=== PATIENT | male | born 1960 | race African-American/Black ===

== ENCOUNTER 2021-01-28 21:50 | Inpatient (IN) | payer OTHER ==
[~2021-01-28] VITALS: Ht 170.2 cm; Wt 90.7 kg
[~2021-01-28 21:50] MED LIST: ASPI-1406 PO; CALC0.5C10 PO; CALC500T35 PO; KEPP500 MT; LEVO125T8 PO; PANT20TA17 MT; PRED10TA PO
[2021-01-28] MEDS ORDERED: LEVETIRACETAM 500MG PREMIX 100 ML IV ONE (22:45)
[2021-01-28] MEDS ORDERED: SODIUM CHLORIDE 0.9% 1,000 ML IV ONE (22:45)
[2021-01-28 23:34] LABS: CHLORIDE 99 mEq/L (98-107)
[2021-01-28 23:48] LABS: HEMATOCRIT. 46.4 % (42.0-52.0); HEMOGLOBIN. 15.2 g/dL (14.0-18.0); MEAN CORPUSCULAR VOLUME 82.4 fL (80.0-94.0); RED BLOOD CELL COUNT 5.63 mill/uL (4.7-6.1); RED CELL DISTRIBUTION WIDTH 16.7 % (11.6-14.6)
[2021-01-29 04:31] LABS: MEAN PLATELET VOLUME 8.1 fl (7.4-10.4); PLATELET 273 x1000/uL (130-400)
[2021-01-29 04:39] LABS: PLATELET ESTIMATE NORMAL
[2021-01-29] MEDS ORDERED: DEXTROSE 50% WATER 50ML SYRINGE IV ONE (08:00)
[2021-01-29] MEDS ORDERED: PIPERACILLIN/TAZ 3.375G PREMIX 50 ML IV ONE (08:15)
[2021-01-29] MEDS ORDERED: VANCOMYCIN 1 G PREMIX 200 ML IV ONE (08:15)
[2021-01-29 10:00] VITALS: BP 126/67
[2021-01-29] MEDS ORDERED: ZOLPIDEM TARTRATE 5MG TABLET PO PRN (10:15)
[2021-01-29] MEDS ORDERED: KETOROLAC 30MG/ML VIAL IV PRN (10:15)
[2021-01-29] MEDS ORDERED: IPRATROPIUM/ALBUTEROL 0.5-3(2.5)MG/3ML NEB NEB PRN (10:15)
[2021-01-29] MEDS ORDERED: GUAIFENESIN 200MG/10ML SUGAR FREE UDC PO PRN (10:15)
[2021-01-29] MEDS ORDERED: ENOXAPARIN 30MG/0.3ML SYR SUBCUT SCH (10:15)
[2021-01-29] MEDS ORDERED: ACETAMINOPHEN 325MG TABLET PO PRN ×2 (10:15)
[2021-01-29] MEDS ORDERED: DOCUSATE SODIUM 100MG CAPSULE PO PRN (10:15)
[2021-01-29] MEDS ORDERED: MAGNESIUM/ALUMINUM HYDROXIDE/SIMETHICONE 30ML UDC PO PRN (10:15)
[2021-01-29 12:00] VITALS: BP 116/50
[2021-01-29] MEDS ORDERED: LEVOFLOXACIN 500MG PREMIX 100 ML IV SCH ×2 (12:00→15:00)
[2021-01-29] MEDS ORDERED: DEXTROSE 50% WATER 50ML SYRINGE IV PRN (12:15)
[2021-01-29] MEDS: INSULIN LISPRO 100 UNITS/ML SUBCUT SCH ×3 (12:50→21:00)
[2021-01-29] MEDS: BLOOD SUGAR DIAGNOSTIC STRIP TEST SCH ×3 (12:56→21:00)
[2021-01-29] MEDS: LEVOFLOXACIN 250MG PREMIX 50 ML IV SCH (13:43)
[2021-01-29] MEDS: SODIUM CHLORIDE 0.9% 1,000 ML IV SCH ×2 (13:44→22:11)
[2021-01-29] MEDS: DEXT 5%/LACTATED RINGERS 1,000 ML IV SCH (13:45)
[2021-01-29] MEDS: ENOXAPARIN 80MG/0.8ML SYR SUBCUT SCH (14:17)
[2021-01-29 15:20] VITALS: BP 126/67
[2021-01-29] MEDS: FAMOTIDINE 20MG TABLET PO SCH (15:59)
[2021-01-29] MEDS: ASPIRIN 325MG EC TABLET PO SCH (15:59)
[2021-01-29 16:00] VITALS: BP 95/61
[2021-01-29] MEDS: LEVETIRACETAM 500MG/5ML CUP PO SCH (16:05)
[2021-01-29 20:32] VITALS: BP 102/79
[2021-01-29] MEDS: ASCORBIC ACID 500 MG TABLET PO SCH (22:11)
[2021-01-30] VITALS: BP 105/80
[2021-01-30 00:01] LABS: TOTAL IRON BINDING CAPACITY 143 ug/dL (250-450)
[2021-01-30 00:04] LABS: CREATINE KINASE 246 IU/L (39-308); T4 FREE 0.41 ng/dL (0.76-1.46)
[2021-01-30 00:05] LABS: CREATINE KINASE MB FRACTION < 1.0 ng/mL (0.5-3.6)
[2021-01-30] MEDS: DEXT 5%/LACTATED RINGERS 1,000 ML IV SCH ×2 (03:05→16:00)
[2021-01-30 04:20] VITALS: BP 106/48
[2021-01-30 05:23] LABS: FOLIC ACID (FOLATE) SERUM 4.7 ng/mL (>5.38)
[2021-01-30 06:44] LABS: CHLORIDE 102 mEq/L (98-107)
[2021-01-30 06:52] LABS: PHOSPHORUS 2.8 mg/dL (2.5-4.9)
[2021-01-30] MEDS: BLOOD SUGAR DIAGNOSTIC STRIP TEST SCH ×4 (06:53→21:27)
[2021-01-30] MEDS: INSULIN LISPRO 100 UNITS/ML SUBCUT SCH ×4 (06:53→21:00)
[2021-01-30 08:00] VITALS: BP 110/73
[2021-01-30] MEDS: ASPIRIN 325MG EC TABLET PO SCH (09:59)
[2021-01-30] MEDS: LEVETIRACETAM 500MG/5ML CUP PO SCH ×2 (09:59→21:27)
[2021-01-30] MEDS: ASCORBIC ACID 500 MG TABLET PO SCH ×2 (09:59→21:27)
[2021-01-30] MEDS: FAMOTIDINE 20MG TABLET PO SCH ×2 (09:59→10:00)
[2021-01-30] MEDS: LEVOFLOXACIN 250MG PREMIX 50 ML IV SCH (09:59)
[2021-01-30] MEDS: ZINC SULFATE 220 MG ( 50 ) CAPSULE PO SCH ×2 (09:59→10:00)
[2021-01-30 10:24] LABS: BASOPHILS % 1.1 % (0.0-2.0); EOSINOPHILS % 9.2 % (0.0-5.0); HEMATOCRIT. 39.9 % (42.0-52.0); HEMOGLOBIN. 12.7 g/dL (14.0-18.0); LYMPHOCYTES % 23.3 % (20.0-50.0); MEAN CORPUSCULAR HEMOGLOBIN 26.7 pg (28.0-32.0); MEAN CORPUSCULAR VOLUME 83.8 fL (80.0-94.0); MONOCYTES % 13.1 % (2.0-8.0); NEUTROPHILS % 53.3 % (40.0-76.0); PLATELET 257 x1000/uL (130-400); RED BLOOD CELL COUNT 4.76 mill/uL (4.7-6.1); RED CELL DISTRIBUTION WIDTH 16.8 % (11.6-14.6)
[2021-01-30 12:00] VITALS: BP 114/61
[2021-01-30] MEDS ORDERED: LIDOCAINE HCL 1% 30ML VIAL (10MG/ML) ONE (14:01)
[2021-01-30] MEDS ORDERED: IOHEXOL-300 50 ML BOTTLE IV ONE (14:48)
[2021-01-30] MEDS: METOCLOPRAMIDE HCL 10MG TABLET PO SCH ×3 (15:59→21:27)
[2021-01-30] MEDS: ENOXAPARIN 80MG/0.8ML SYR SUBCUT SCH (15:59)
[2021-01-30 16:00] VITALS: BP 91/55
[2021-01-30] MEDS: MIDODRINE HCL 2.5MG TABLET PO SCH (18:39)
[2021-01-30 20:00] VITALS: BP 110/61
[2021-01-30 21:30] LABS: CLARITY URINE CLEAR (CLEAR); COLOR URINE DARK YELLOW (YELLOW); KETONES URINE TRACE (NEGATIVE); LEUKOCYTE ESTERASE URINE TRACE (NEGATIVE); NITRITE URINE NEGATIVE (NEGATIVE); OCCULT BLOOD URINE NEGATIVE (NEGATIVE); PH URINE 5.5 (4.5-8.0); PROTEIN URINE 1+ (NEGATIVE); SPECIFIC GRAVITY URINE 1.018 (1.005-1.030)
[2021-01-31 00:15] VITALS: BP 96/52
[2021-01-31 04:00] VITALS: BP 105/52
[2021-01-31] MEDS: DEXT 5%/LACTATED RINGERS 1,000 ML IV SCH ×2 (05:34→18:09)
[2021-01-31] MEDS: METOCLOPRAMIDE HCL 10MG TABLET PO SCH ×4 (06:24→21:26)
[2021-01-31] MEDS: BLOOD SUGAR DIAGNOSTIC STRIP TEST SCH ×4 (06:47→21:00)
[2021-01-31] MEDS: INSULIN LISPRO 100 UNITS/ML SUBCUT SCH ×4 (07:50→21:00)
[2021-01-31 07:51] VITALS: BP 120/66
[2021-01-31] MEDS: ZINC SULFATE 220 MG ( 50 ) CAPSULE PO SCH (09:28)
[2021-01-31] MEDS: LEVETIRACETAM 500MG/5ML CUP PO SCH ×2 (09:29→21:22)
[2021-01-31] MEDS: ASCORBIC ACID 500 MG TABLET PO SCH ×2 (09:29→21:23)
[2021-01-31] MEDS: FAMOTIDINE 20MG TABLET PO SCH (09:29)
[2021-01-31] MEDS: ASPIRIN 325MG EC TABLET PO SCH (09:29)
[2021-01-31] MEDS: ONDANSETRON HCL 4MG/2ML INJ IV PRN ×2 (10:11→13:19)
[2021-01-31] MEDS: MIDODRINE HCL 2.5MG TABLET PO SCH ×3 (10:12→18:09)
[2021-01-31 11:02] VITALS: BP 95/57
[2021-01-31] MEDS: ENOXAPARIN 80MG/0.8ML SYR SUBCUT SCH (13:19)
[2021-01-31 16:00] VITALS: BP 101/51
[2021-01-31 19:20] LABS: *AMPHETAMINES SCREEN URINE NEGATIVE (NEGATIVE); *BARBITURATES SCREEN URINE NEGATIVE (NEGATIVE); *BENZODIAZEPINES SCREEN URINE NEGATIVE (NEGATIVE); *COCAINE SCREEN URINE NEGATIVE (NEGATIVE); METHADONE URINE SCREEN NEGATIVE (NEGATIVE); OPIATES URINE SCREEN NEGATIVE (NEGATIVE)
[2021-01-31 19:21] LABS: CANNABINOID URINE SCREEN NEGATIVE (NEGATIVE); PHENCYCLIDINE URINE SCREEN NEGATIVE (NEGATIVE)
[2021-01-31 20:19] VITALS: BP 112/59
[2021-02-01 00:07] VITALS: BP 122/59
[2021-02-01 04:24] VITALS: BP 97/51
[2021-02-01] MEDS: BLOOD SUGAR DIAGNOSTIC STRIP TEST SCH ×4 (06:23→21:00)
[2021-02-01] MEDS: METOCLOPRAMIDE HCL 10MG TABLET PO SCH ×4 (06:33→21:30)
[2021-02-01] MEDS: DEXT 5%/LACTATED RINGERS 1,000 ML IV SCH (07:38)
[2021-02-01] MEDS: INSULIN LISPRO 100 UNITS/ML SUBCUT SCH ×4 (07:50→21:31)
[2021-02-01 08:08] VITALS: BP 106/64
[2021-02-01] MEDS: ASPIRIN 325MG EC TABLET PO SCH (11:06)
[2021-02-01] MEDS: ASCORBIC ACID 500 MG TABLET PO SCH ×2 (11:06→21:24)
[2021-02-01] MEDS: MIDODRINE HCL 2.5MG TABLET PO SCH ×3 (11:07→19:03)
[2021-02-01] MEDS: ONDANSETRON HCL 4MG/2ML INJ IV PRN (11:07)
[2021-02-01] MEDS: LEVETIRACETAM 500MG/5ML CUP PO SCH ×2 (11:07→23:40)
[2021-02-01] MEDS: ZINC SULFATE 220 MG ( 50 ) CAPSULE PO SCH (11:07)
[2021-02-01] MEDS: FAMOTIDINE 20MG TABLET PO SCH (11:07)
[2021-02-01] MEDS: LEVOFLOXACIN 250MG PREMIX 50 ML IV SCH (11:08)
[2021-02-01 12:12] VITALS: BP 112/59
[2021-02-01] MEDS: ENOXAPARIN 80MG/0.8ML SYR SUBCUT SCH (13:33)
[2021-02-01 16:44] VITALS: BP 101/59
[2021-02-01 20:30] VITALS: BP 123/70
[2021-02-02 00:01] VITALS: BP 108/57
[2021-02-02] MEDS: DEXT 5%/LACTATED RINGERS 1,000 ML IV SCH ×2 (00:05→13:05)
[2021-02-02 04:00] VITALS: BP 97/52
[2021-02-02] MEDS: BLOOD SUGAR DIAGNOSTIC STRIP TEST SCH ×4 (06:24→20:30)
[2021-02-02] MEDS: METOCLOPRAMIDE HCL 10MG TABLET PO SCH ×4 (06:25→20:29)
[2021-02-02] MEDS: INSULIN LISPRO 100 UNITS/ML SUBCUT SCH ×4 (07:50→21:13)
[2021-02-02 07:57] VITALS: BP 99/58
[2021-02-02] MEDS: ZINC SULFATE 220 MG ( 50 ) CAPSULE PO SCH (09:00)
[2021-02-02] MEDS: LEVETIRACETAM 500MG/5ML CUP PO SCH ×2 (09:00→20:29)
[2021-02-02] MEDS: ASCORBIC ACID 500 MG TABLET PO SCH ×2 (09:00→20:29)
[2021-02-02] MEDS: MIDODRINE HCL 2.5MG TABLET PO SCH ×3 (09:00→18:18)
[2021-02-02] MEDS: FAMOTIDINE 20MG TABLET PO SCH (09:00)
[2021-02-02] MEDS: ASPIRIN 325MG EC TABLET PO SCH (09:00)
[2021-02-02 12:09] VITALS: BP 81/45
[2021-02-02] MEDS: ENOXAPARIN 80MG/0.8ML SYR SUBCUT SCH (14:31)
[2021-02-02 16:16] VITALS: BP 90/35
[2021-02-02 20:00] VITALS: BP 133/70
[2021-02-03] VITALS: BP 92/53
[2021-02-03] MEDS: DEXT 5%/LACTATED RINGERS 1,000 ML IV SCH ×2 (01:04→13:44)
[2021-02-03 04:00] VITALS: BP 88/50
[2021-02-03] MEDS: BLOOD SUGAR DIAGNOSTIC STRIP TEST SCH ×4 (06:54→20:17)
[2021-02-03] MEDS: INSULIN LISPRO 100 UNITS/ML SUBCUT SCH ×4 (07:01→20:17)
[2021-02-03] MEDS: METOCLOPRAMIDE HCL 10MG TABLET PO SCH ×4 (07:01→20:17)
[2021-02-03 08:00] VITALS: BP 101/46
[2021-02-03] MEDS: ASCORBIC ACID 500 MG TABLET PO SCH ×2 (09:00→20:17)
[2021-02-03] MEDS: ZINC SULFATE 220 MG ( 50 ) CAPSULE PO SCH (09:00)
[2021-02-03] MEDS: FAMOTIDINE 20MG TABLET PO SCH (09:00)
[2021-02-03] MEDS: ASPIRIN 325MG EC TABLET PO SCH (09:00)
[2021-02-03] MEDS: LEVOFLOXACIN 250MG PREMIX 50 ML IV SCH (10:54)
[2021-02-03] MEDS: LEVETIRACETAM 500MG/5ML CUP PO SCH ×2 (10:55→20:16)
[2021-02-03] MEDS: MIDODRINE HCL 2.5MG TABLET PO SCH ×3 (10:55→18:11)
[2021-02-03 12:00] VITALS: BP 113/52
[2021-02-03 12:14] LABS: HEMATOCRIT. 33.7 % (42.0-52.0); HEMOGLOBIN. 10.8 g/dL (14.0-18.0); MEAN CORPUSCULAR HEMOGLOBIN 26.4 pg (28.0-32.0); MEAN CORPUSCULAR VOLUME 82.8 fL (80.0-94.0); MEAN PLATELET VOLUME 7.9 fl (7.4-10.4); PLATELET 219 x1000/uL (130-400); RED BLOOD CELL COUNT 4.07 mill/uL (4.7-6.1); RED CELL DISTRIBUTION WIDTH 17.2 % (11.6-14.6)
[2021-02-03 12:27] LABS: CHLORIDE 105 mEq/L (98-107)
[2021-02-03 12:34] LABS: PHOSPHORUS 1.8 mg/dL (2.5-4.9)
[2021-02-03 13:18] LABS: PLATELET ESTIMATE NORMAL
[2021-02-03] MEDS: ENOXAPARIN 80MG/0.8ML SYR SUBCUT SCH (13:45)
[2021-02-03] MEDS: HYDROCORTISONE SOD SUCCINATE 100 MG/2 ML VIAL IV SCH ×2 (14:45→21:47)
[2021-02-03] MEDS ORDERED: POTASSIUM PHOS,M-BASIC-D-BASIC 15 MMOL in DEXT 5% WATER 245 ML IV NR (15:00)
[2021-02-03] MEDS ORDERED: MAGNESIUM 1 G PREMIX 100 ML IV NR (15:00)
[2021-02-03 16:00] VITALS: BP 98/56
[2021-02-03 16:40] LABS: CLARITY URINE CLOUDY (CLEAR); COLOR URINE DARK YELLOW (YELLOW); KETONES URINE NEGATIVE (NEGATIVE); LEUKOCYTE ESTERASE URINE 1+ (NEGATIVE); NITRITE URINE NEGATIVE (NEGATIVE); OCCULT BLOOD URINE 3+ (NEGATIVE); PROTEIN URINE 1+ (NEGATIVE); SPECIFIC GRAVITY URINE 1.011 (1.005-1.030)
[2021-02-03 18:14] LABS: CREATINE KINASE 801 IU/L (39-308)
[2021-02-03 20:00] VITALS: BP 106/62
[2021-02-04] VITALS: BP 106/73
[2021-02-04 04:00] VITALS: BP 123/70
[2021-02-04] MEDS: BLOOD SUGAR DIAGNOSTIC STRIP TEST SCH ×4 (06:00→22:08)
[2021-02-04] MEDS: HYDROCORTISONE SOD SUCCINATE 100 MG/2 ML VIAL IV SCH ×3 (06:00→22:08)
[2021-02-04] MEDS: INSULIN LISPRO 100 UNITS/ML SUBCUT SCH ×4 (06:00→22:07)
[2021-02-04] MEDS: METOCLOPRAMIDE HCL 10MG TABLET PO SCH ×4 (06:23→21:00)
[2021-02-04 07:20] LABS: CHLORIDE 103 mEq/L (98-107)
[2021-02-04 07:24] LABS: BASOPHILS % 0.1 % (0.0-2.0); EOSINOPHILS % 0.1 % (0.0-5.0); HEMATOCRIT. 36.9 % (42.0-52.0); LYMPHOCYTES % 8.2 % (20.0-50.0); MEAN CORPUSCULAR HEMOGLOBIN 26.9 pg (28.0-32.0); MEAN CORPUSCULAR VOLUME 82.7 fL (80.0-94.0); MEAN PLATELET VOLUME 8.2 fl (7.4-10.4); MONOCYTES % 2.1 % (2.0-8.0); NEUTROPHILS % 89.5 % (40.0-76.0); PLATELET 238 x1000/uL (130-400); RED BLOOD CELL COUNT 4.46 mill/uL (4.7-6.1); RED CELL DISTRIBUTION WIDTH 17.2 % (11.6-14.6)
[2021-02-04 07:48] LABS: PHOSPHORUS 1.7 mg/dL (2.5-4.9)
[2021-02-04 08:00] VITALS: BP 152/86
[2021-02-04] MEDS: ASCORBIC ACID 500 MG TABLET PO SCH ×2 (09:00→21:00)
[2021-02-04] MEDS: ZINC SULFATE 220 MG ( 50 ) CAPSULE PO SCH (09:00)
[2021-02-04] MEDS: ASPIRIN 325MG EC TABLET PO SCH (09:00)
[2021-02-04] MEDS: MIDODRINE HCL 2.5MG TABLET PO SCH ×2 (09:00→13:00)
[2021-02-04] MEDS: LEVETIRACETAM 500MG/5ML CUP PO SCH ×2 (09:00→21:00)
[2021-02-04] MEDS: FAMOTIDINE 20MG TABLET PO SCH (09:00)
[2021-02-04] MEDS: INSULIN GLARGINE UD 100 UNITS/ML SYR SUBCUT SCH (10:54)
[2021-02-04 12:00] VITALS: BP 136/76
[2021-02-04] MEDS: ENOXAPARIN 80MG/0.8ML SYR SUBCUT SCH (13:47)
[2021-02-04] MEDS ORDERED: SODIUM CHLORIDE 0.9% 500 ML IV ONE (14:30)
[2021-02-04] MEDS: SODIUM CHLORIDE 0.9% 1,000 ML IV SCH (15:01)
[2021-02-04 16:00] VITALS: BP 104/59
[2021-02-04] MEDS ORDERED: POTASSIUM PHOS,M-BASIC-D-BASIC 20 MMOL in DEXT 5% WATER 243.3333 ML IV NR (16:00)
[2021-02-04] MEDS ORDERED: MAGNESIUM 2 G PREMIX 50 ML IV NR (16:00)
[2021-02-04 16:33] LABS: BG CARBOXYHEMOGLOBIN 0.1 % (0.5-1.5); BG DEOXYHEMOGLOBIN 4.2 % (0.0-5.0); BG HCO3 ACT 22.2 mmol/L (22.0-26.0); BG METHEMOGLOBIN 0.4 % (0.0-1.5); BG OXYGEN SATURATION 95.8 % (92.0-98.5); BG OXYHEMOGLOBIN 95.3 % (94.0-97.0); BG PCO2 40.4 mmHg (35.0-45.0); BG PH 7.358 (7.350-7.450); BG PO2 86.6 mmHg (75.0-100.0); BG SAMPLE SITE RIGHT RADIAL; BG TOTAL HEMOGLOBIN 12.8 g/dL (12.0-18.0); BG VENT MODE ROOM AIR
[2021-02-04 20:00] VITALS: BP 114/81
[2021-02-05] VITALS: BP 135/86
[2021-02-05] MEDS: SODIUM CHLORIDE 0.9% 1,000 ML IV SCH ×3 (01:04→23:04)
[2021-02-05 04:00] VITALS: BP 109/68
[2021-02-05] MEDS: HYDROCORTISONE SOD SUCCINATE 100 MG/2 ML VIAL IV SCH ×3 (05:43→22:45)
[2021-02-05] MEDS: METOCLOPRAMIDE HCL 10MG TABLET PO SCH ×4 (05:44→22:43)
[2021-02-05 06:25] LABS: HEMATOCRIT. 37.4 % (42.0-52.0); HEMOGLOBIN. 12.2 g/dL (14.0-18.0); MEAN CORPUSCULAR HEMOGLOBIN 26.8 pg (28.0-32.0); PLATELET 284 x1000/uL (130-400); RED BLOOD CELL COUNT 4.56 mill/uL (4.7-6.1); RED CELL DISTRIBUTION WIDTH 17.4 % (11.6-14.6)
[2021-02-05 06:35] LABS: CHLORIDE 105 mEq/L (98-107)
[2021-02-05] MEDS: BLOOD SUGAR DIAGNOSTIC STRIP TEST SCH ×4 (07:41→21:00)
[2021-02-05] MEDS: INSULIN LISPRO 100 UNITS/ML SUBCUT SCH ×4 (07:50→22:44)
[2021-02-05 08:06] VITALS: BP 123/81
[2021-02-05] MEDS: ASPIRIN 325MG EC TABLET PO SCH (08:59)
[2021-02-05] MEDS: LEVETIRACETAM 500MG/5ML CUP PO SCH ×2 (08:59→22:42)
[2021-02-05] MEDS: ZINC SULFATE 220 MG ( 50 ) CAPSULE PO SCH (08:59)
[2021-02-05] MEDS: ASCORBIC ACID 500 MG TABLET PO SCH ×2 (09:00→22:42)
[2021-02-05] MEDS: FAMOTIDINE 20MG TABLET PO SCH (09:00)
[2021-02-05] MEDS: INSULIN GLARGINE UD 100 UNITS/ML SYR SUBCUT SCH (10:30)
[2021-02-05 11:45] VITALS: BP 149/80
[2021-02-05 13:24] LABS: PLATELET ESTIMATE NORMAL
[2021-02-05] MEDS: ENOXAPARIN 80MG/0.8ML SYR SUBCUT SCH (13:54)
[2021-02-05 16:17] VITALS: BP 148/81
[2021-02-05] MEDS: LEVOTHYROXINE SODIUM 75MCG TABLET PO SCH (16:41)
[2021-02-05] MEDS: CALCITRIOL 0.25MCG CAPSULE PO SCH (16:41)
[2021-02-05 20:00] VITALS: BP 134/85
[2021-02-06] VITALS: BP 148/78
[2021-02-06 04:00] VITALS: BP 118/77
[2021-02-06 04:11] LABS: *CREATININE RANDOM URINE 213.6 mg/dL (Not Estab.); MICROALBUMIN RANDOM URINE 156.5 ug/mL (Not Estab.)
[2021-02-06] MEDS ORDERED: LIDOCAINE HCL/PF 1% 2ML VIAL ONE (05:00)
[2021-02-06] MEDS: BLOOD SUGAR DIAGNOSTIC STRIP TEST SCH ×4 (06:33→20:02)
[2021-02-06] MEDS: LEVOTHYROXINE SODIUM 75MCG TABLET PO SCH (06:33)
[2021-02-06] MEDS: SODIUM CHLORIDE 0.9% 1,000 ML IV SCH ×2 (06:33→13:26)
[2021-02-06] MEDS: METOCLOPRAMIDE HCL 10MG TABLET PO SCH ×4 (06:33→21:09)
[2021-02-06] MEDS: HYDROCORTISONE SOD SUCCINATE 100 MG/2 ML VIAL IV SCH ×3 (06:34→21:10)
[2021-02-06 07:00] LABS: HEMATOCRIT. 37.5 % (42.0-52.0); HEMOGLOBIN. 12.1 g/dL (14.0-18.0); MEAN CORPUSCULAR HEMOGLOBIN 26.3 pg (28.0-32.0); MEAN CORPUSCULAR VOLUME 81.7 fL (80.0-94.0); MEAN PLATELET VOLUME 8.4 fl (7.4-10.4); PLATELET 271 x1000/uL (130-400); RED BLOOD CELL COUNT 4.59 mill/uL (4.7-6.1); RED CELL DISTRIBUTION WIDTH 17.6 % (11.6-14.6)
[2021-02-06] MEDS: INSULIN LISPRO 100 UNITS/ML SUBCUT SCH ×4 (07:50→21:11)
[2021-02-06 08:11] VITALS: BP 163/101
[2021-02-06 08:32] LABS: PHOSPHORUS 2.9 mg/dL (2.5-4.9)
[2021-02-06] MEDS: ZINC SULFATE 220 MG ( 50 ) CAPSULE PO SCH (09:46)
[2021-02-06] MEDS: ASCORBIC ACID 500 MG TABLET PO SCH ×2 (09:46→21:09)
[2021-02-06] MEDS: CALCITRIOL 0.25MCG CAPSULE PO SCH (09:46)
[2021-02-06] MEDS: LEVETIRACETAM 500MG/5ML CUP PO SCH ×2 (09:46→21:09)
[2021-02-06] MEDS: FAMOTIDINE 20MG TABLET PO SCH (09:46)
[2021-02-06] MEDS: ASPIRIN 325MG EC TABLET PO SCH (09:46)
[2021-02-06] MEDS: INSULIN GLARGINE UD 100 UNITS/ML SYR SUBCUT SCH (09:47)
[2021-02-06] MEDS: AMLODIPINE 5MG TABLET PO SCH (09:58)
[2021-02-06 10:02] LABS: BG BASE EXCESS -4.8 mmol/L (-2.0-2.0); BG CARBOXYHEMOGLOBIN 0.3 % (0.5-1.5); BG HCO3 ACT 18.8 mmol/L (22.0-26.0); BG METHEMOGLOBIN 0.5 % (0.0-1.5); BG OXYGEN SATURATION 91.9 % (92.0-98.5); BG OXYHEMOGLOBIN 91.2 % (94.0-97.0); BG PCO2 30.8 mmHg (35.0-45.0); BG PH 7.404 (7.350-7.450); BG PO2 67.6 mmHg (75.0-100.0); BG SAMPLE SITE RIGHT RADIAL; BG TOTAL HEMOGLOBIN 12.7 g/dL (12.0-18.0); BG VENT MODE ROOM AIR
[2021-02-06] MEDS ORDERED: LEVOTHYROXINE SODIUM 100 MCG/ VIAL IV SCH (12:00)
[2021-02-06 12:37] VITALS: BP 169/86
[2021-02-06] MEDS: ENOXAPARIN 80MG/0.8ML SYR SUBCUT SCH (13:06)
[2021-02-06] MEDS: ONDANSETRON HCL 4MG/2ML INJ IV PRN (15:28)
[2021-02-06 16:20] VITALS: BP 154/77
[2021-02-06 18:19] LABS: PLATELET ESTIMATE NORMAL
[2021-02-06 20:00] VITALS: BP 164/80
[2021-02-06] MEDS: CLONIDINE 0.1MG TABLET PO PRN (21:17)
[2021-02-07 00:37] VITALS: BP 106/73
[2021-02-07] MEDS: SODIUM CHLORIDE 0.9% 1,000 ML IV SCH (01:50)
[2021-02-07 04:00] VITALS: BP 148/75
[2021-02-07] MEDS: HYDROCORTISONE SOD SUCCINATE 100 MG/2 ML VIAL IV SCH ×3 (05:46→21:46)
[2021-02-07] MEDS: METOCLOPRAMIDE HCL 10MG TABLET PO SCH ×4 (05:51→21:46)
[2021-02-07] MEDS: LEVOTHYROXINE SODIUM 125MCG TABLET PO SCH (05:53)
[2021-02-07 07:18] LABS: HEMATOCRIT. 30.8 % (42.0-52.0); HEMOGLOBIN. 9.9 g/dL (14.0-18.0); MEAN CORPUSCULAR HEMOGLOBIN 26.4 pg (28.0-32.0); MEAN CORPUSCULAR VOLUME 81.9 fL (80.0-94.0); MEAN PLATELET VOLUME 7.8 fl (7.4-10.4); PLATELET 199 x1000/uL (130-400); RED BLOOD CELL COUNT 3.76 mill/uL (4.7-6.1); RED CELL DISTRIBUTION WIDTH 17.6 % (11.6-14.6)
[2021-02-07 07:27] LABS: INR 1.3; PROTHROMBIN TIME 13.3 sec (9.6-11.0)
[2021-02-07 07:32] LABS: CHLORIDE 114 mEq/L (98-107)
[2021-02-07 07:43] LABS: PHOSPHORUS 3.2 mg/dL (2.5-4.9)
[2021-02-07 07:54] VITALS: BP 177/83
[2021-02-07] MEDS: BLOOD SUGAR DIAGNOSTIC STRIP TEST SCH ×4 (07:59→21:46)
[2021-02-07] MEDS: ASPIRIN 325MG EC TABLET PO SCH (09:26)
[2021-02-07] MEDS: INSULIN LISPRO 100 UNITS/ML SUBCUT SCH ×4 (09:26→22:31)
[2021-02-07] MEDS: CALCITRIOL 0.25MCG CAPSULE PO SCH (09:26)
[2021-02-07] MEDS: LEVETIRACETAM 500MG/5ML CUP PO SCH ×2 (09:26→21:46)
[2021-02-07] MEDS: ASCORBIC ACID 500 MG TABLET PO SCH ×2 (09:26→21:46)
[2021-02-07] MEDS: FAMOTIDINE 20MG TABLET PO SCH (09:27)
[2021-02-07] MEDS: AMLODIPINE 5MG TABLET PO SCH (09:27)
[2021-02-07] MEDS: ZINC SULFATE 220 MG ( 50 ) CAPSULE PO SCH (09:27)
[2021-02-07] MEDS: INSULIN GLARGINE UD 100 UNITS/ML SYR SUBCUT SCH (11:07)
[2021-02-07 11:17] VITALS: BP 132/73
[2021-02-07] MEDS ORDERED: MAGNESIUM 2 G PREMIX 50 ML IV SCH (12:00)
[2021-02-07] MEDS: SODIUM CHLORIDE 0.45% 1,000 ML IV SCH ×2 (12:46→21:45)
[2021-02-07] MEDS ORDERED: POTASSIUM CHLORIDE INJ 40 MEQ in DEXT 5% WATER 250 ML IV SCH (13:00)
[2021-02-07] MEDS ORDERED: ENOXAPARIN 80MG/0.8ML SYR SUBCUT SCH (14:00)
[2021-02-07 15:37] VITALS: BP 135/66
[2021-02-07 17:26] LABS: PLATELET ESTIMATE NORMAL
[2021-02-07 20:00] VITALS: BP 146/91
[2021-02-07] MEDS: DOCUSATE SODIUM 100MG CAPSULE PO SCH (20:00)
[2021-02-07] MEDS: ONDANSETRON HCL 4MG/2ML INJ IV PRN (21:49)
[2021-02-07] MEDS: SENNOSIDES 8.6MG TABLET PO SCH (21:49)
[2021-02-07] MEDS ORDERED: DILTIAZEM HCL 5MG/ML 5ML VIAL IV PRN (22:15)
[2021-02-08] VITALS (71 sets, daily range): BP systolic 94–190; BP diastolic 51–117
[2021-02-08] MEDS: CLONIDINE 0.1MG TABLET PO PRN (00:18)
[2021-02-08 03:31] LABS: BG BASE EXCESS -6.3 mmol/L (-2.0-2.0); BG CARBOXYHEMOGLOBIN 0.2 % (0.5-1.5); BG DEOXYHEMOGLOBIN 0.4 % (0.0-5.0); BG FRACTION INSPIRED OXYGEN 100; BG METHEMOGLOBIN 0.4 % (0.0-1.5); BG OXYGEN SATURATION 99.6 % (92.0-98.5); BG PCO2 32.5 mmHg (35.0-45.0); BG PH 7.362 (7.350-7.450); BG PO2 381.4 mmHg (75.0-100.0); BG SAMPLE SITE RIGHT BRACHIAL; BG TOTAL HEMOGLOBIN 13.7 g/dL (12.0-18.0); BG TOTAL RESPIRATORY RATE 16 b/min; BG VENT MODE VENT - AC
[2021-02-08] MEDS ORDERED: MIDAZOLAM 100MG/100ML PMX 100 ML IV PRN (03:45)
[2021-02-08] MEDS ORDERED: MIDAZOLAM HCL 100 MG in SODIUM CHLORIDE 0.9% 100 ML IV PRN (04:00)
[2021-02-08] MEDS ORDERED: FENTANYL CITRATE/PF 2,500 MCG in SODIUM CHLORIDE 0.9% 200 ML IV PRN (04:00)
[2021-02-08] MEDS: HYDROCORTISONE SOD SUCCINATE 100 MG/2 ML VIAL IV SCH ×3 (05:18→22:15)
[2021-02-08 06:41] LABS: HEMATOCRIT. 38.7 % (42.0-52.0); HEMOGLOBIN. 12.6 g/dL (14.0-18.0); MEAN CORPUSCULAR HEMOGLOBIN 26.3 pg (28.0-32.0); MEAN CORPUSCULAR VOLUME 80.9 fL (80.0-94.0); MEAN PLATELET VOLUME 7.9 fl (7.4-10.4); PLATELET 214 x1000/uL (130-400); RED BLOOD CELL COUNT 4.78 mill/uL (4.7-6.1); RED CELL DISTRIBUTION WIDTH 18.1 % (11.6-14.6)
[2021-02-08 06:49] LABS: INR 1.2; PROTHROMBIN TIME 12.4 sec (9.6-11.0)
[2021-02-08] MEDS: SODIUM CHLORIDE 0.45% 1,000 ML IV SCH ×2 (07:00→17:10)
[2021-02-08 07:09] LABS: PHOSPHORUS 4.6 mg/dL (2.5-4.9)
[2021-02-08] MEDS: BLOOD SUGAR DIAGNOSTIC STRIP TEST SCH ×4 (08:44→21:00)
[2021-02-08] MEDS: DOPAMINE 400MG/250ML PREMIX 250 ML IV PRN (10:06)
[2021-02-08 11:30] LABS: BG BASE EXCESS -6.1 mmol/L (-2.0-2.0); BG CARBOXYHEMOGLOBIN 0.2 % (0.5-1.5); BG DEOXYHEMOGLOBIN 5.6 % (0.0-5.0); BG FRACTION INSPIRED OXYGEN 50; BG HCO3 ACT 18.1 mmol/L (22.0-26.0); BG METHEMOGLOBIN 0.3 % (0.0-1.5); BG OXYGEN SATURATION 94.4 % (92.0-98.5); BG OXYHEMOGLOBIN 93.9 % (94.0-97.0); BG SAMPLE SITE RIGHT RADIAL; BG TOTAL HEMOGLOBIN 13.7 g/dL (12.0-18.0); BG TOTAL RESPIRATORY RATE 16 b/min; BG VENT MODE VENT - AC
[2021-02-08] MEDS: INSULIN LISPRO 100 UNITS/ML SUBCUT SCH ×4 (11:53→22:18)
[2021-02-08] MEDS: LEVOTHYROXINE SODIUM 125MCG TABLET PO SCH (12:02)
[2021-02-08] MEDS: FAMOTIDINE 20MG TABLET PO SCH (12:02)
[2021-02-08] MEDS: POLYETHYLENE GLYCOL 3350 (17GM) 1 DOSE PACK PO SCH (12:02)
[2021-02-08] MEDS: ASCORBIC ACID 500 MG TABLET PO SCH ×2 (12:02→22:15)
[2021-02-08] MEDS: DOCUSATE SODIUM 100MG CAPSULE PO SCH ×2 (12:02→17:09)
[2021-02-08] MEDS: ASPIRIN 325MG EC TABLET PO SCH (12:02)
[2021-02-08] MEDS: CALCITRIOL 0.25MCG CAPSULE PO SCH (12:02)
[2021-02-08] MEDS: ZINC SULFATE 220 MG ( 50 ) CAPSULE PO SCH (12:03)
[2021-02-08] MEDS: AMLODIPINE 5MG TABLET PO SCH (12:03)
[2021-02-08] MEDS: LEVETIRACETAM 500MG/5ML CUP PO SCH ×2 (12:07→22:15)
[2021-02-08] MEDS: INSULIN GLARGINE UD 100 UNITS/ML SYR SUBCUT SCH (12:08)
[2021-02-08] MEDS ORDERED: METOCLOPRAMIDE HCL 5MG TABLET PO SCH (12:50)
[2021-02-08] MEDS: MEROPENEM 500 MG in SODIUM CHLORIDE 0.9% 50 ML IV SCH (13:18)
[2021-02-08] MEDS ORDERED: VANCOMYCIN 1,750 MG in DEXT 5% WATER 500 ML IV NR (13:30)
[2021-02-08] MEDS ORDERED: LACTULOSE 20G/30ML UDC PO NR (13:45)
[2021-02-08] MEDS ORDERED: ENOXAPARIN 100MG/ML SYR SUBCUT SCH (14:00)
[2021-02-08 14:14] LABS: NUCLEATED RED BLOOD CELLS 1 /100 WBC
[2021-02-08 14:15] LABS: PLATELET ESTIMATE NORMAL
[2021-02-08] MEDS: METOCLOPRAMIDE HCL 10MG/2ML VIAL IV SCH (17:09)
[2021-02-08] MEDS: SENNOSIDES 8.6MG TABLET PO SCH (22:15)
[2021-02-09] VITALS (91 sets, daily range): BP systolic 84–181; BP diastolic 46–117
[2021-02-09] MEDS: MEROPENEM 500 MG in SODIUM CHLORIDE 0.9% 50 ML IV SCH ×2 (00:10→12:37)
[2021-02-09] MEDS: METOCLOPRAMIDE HCL 10MG/2ML VIAL IV SCH ×4 (00:15→17:59)
[2021-02-09] MEDS: SODIUM CHLORIDE 0.45% 1,000 ML IV SCH ×3 (02:53→22:50)
[2021-02-09] MEDS: HYDROCORTISONE SOD SUCCINATE 100 MG/2 ML VIAL IV SCH ×3 (05:39→22:35)
[2021-02-09 06:39] LABS: HEMATOCRIT. 31.8 % (42.0-52.0); HEMOGLOBIN. 10.3 g/dL (14.0-18.0); MEAN CORPUSCULAR HEMOGLOBIN 25.5 pg (28.0-32.0); MEAN CORPUSCULAR VOLUME 78.9 fL (80.0-94.0); MEAN PLATELET VOLUME 7.9 fl (7.4-10.4); PLATELET 176 x1000/uL (130-400); RED BLOOD CELL COUNT 4.03 mill/uL (4.7-6.1); RED CELL DISTRIBUTION WIDTH 17.9 % (11.6-14.6)
[2021-02-09] MEDS: DOPAMINE 400MG/250ML PREMIX 250 ML IV PRN (07:20)
[2021-02-09 07:22] LABS: PHOSPHORUS 3.6 mg/dL (2.5-4.9)
[2021-02-09] MEDS: INSULIN LISPRO 100 UNITS/ML SUBCUT SCH ×4 (08:20→21:00)
[2021-02-09 08:24] LABS: BG BASE EXCESS -2.3 mmol/L (-2.0-2.0); BG CARBOXYHEMOGLOBIN 0.3 % (0.5-1.5); BG DEOXYHEMOGLOBIN 2.9 % (0.0-5.0); BG FRACTION INSPIRED OXYGEN 40; BG HCO3 ACT 22.3 mmol/L (22.0-26.0); BG METHEMOGLOBIN 0.4 % (0.0-1.5); BG OXYGEN SATURATION 97.1 % (92.0-98.5); BG OXYHEMOGLOBIN 96.4 % (94.0-97.0); BG PCO2 37.8 mmHg (35.0-45.0); BG PH 7.389 (7.350-7.450); BG PO2 97.6 mmHg (75.0-100.0); BG SAMPLE SITE RIGHT RADIAL; BG TOTAL HEMOGLOBIN 11.4 g/dL (12.0-18.0); BG TOTAL RESPIRATORY RATE 12 b/min; BG VENT MODE VENT - AC
[2021-02-09] MEDS: ZINC SULFATE 220 MG ( 50 ) CAPSULE PO SCH (08:34)
[2021-02-09] MEDS: ASPIRIN 325MG EC TABLET PO SCH (08:34)
[2021-02-09] MEDS: LEVOTHYROXINE SODIUM 125MCG TABLET PO SCH (08:34)
[2021-02-09] MEDS: POLYETHYLENE GLYCOL 3350 (17GM) 1 DOSE PACK PO SCH (08:34)
[2021-02-09] MEDS: ASCORBIC ACID 500 MG TABLET PO SCH ×2 (08:34→22:47)
[2021-02-09] MEDS: DOCUSATE SODIUM 100MG CAPSULE PO SCH ×2 (08:34→17:59)
[2021-02-09] MEDS: CALCITRIOL 0.25MCG CAPSULE PO SCH (08:34)
[2021-02-09] MEDS: LEVETIRACETAM 500MG/5ML CUP PO SCH ×2 (08:34→22:35)
[2021-02-09] MEDS: FAMOTIDINE 20MG TABLET PO SCH (08:34)
[2021-02-09] MEDS: BLOOD SUGAR DIAGNOSTIC STRIP TEST SCH ×4 (08:35→21:02)
[2021-02-09] MEDS: AMLODIPINE 5MG TABLET PO SCH (08:37)
[2021-02-09] MEDS: MIDODRINE HCL 5MG TABLET PO SCH ×3 (09:15→17:00)
[2021-02-09] MEDS: INSULIN GLARGINE UD 100 UNITS/ML SYR SUBCUT SCH (10:00)
[2021-02-09] MEDS ORDERED: POTASSIUM CHLORIDE 20MEQ/PACKET PO NR (11:00)
[2021-02-09 12:45] LABS: NUCLEATED RED BLOOD CELLS 1 /100 WBC
[2021-02-09 12:46] LABS: PLATELET ESTIMATE NORMAL
[2021-02-09 13:17] LABS: BG BASE EXCESS -5.7 mmol/L (-2.0-2.0); BG DEOXYHEMOGLOBIN 11.8 % (0.0-5.0); BG HCO3 ACT 23.4 mmol/L (22.0-26.0); BG METHEMOGLOBIN 0.3 % (0.0-1.5); BG OXYGEN SATURATION 88.2 % (92.0-98.5); BG OXYHEMOGLOBIN 87.9 % (94.0-97.0); BG PH 7.181 (7.350-7.450); BG PO2 70.8 mmHg (75.0-100.0); BG SAMPLE SITE RIGHT RADIAL; BG VENT MODE NASAL CANNULA
[2021-02-09] MEDS: PANTOPRAZOLE SODIUM 40 MG/VIAL IV SCH ×2 (14:12→22:35)
[2021-02-09] MEDS: SENNOSIDES 8.6MG TABLET PO SCH (22:35)
[2021-02-10] VITALS (55 sets, daily range): BP systolic 93–170; BP diastolic 44–103
[2021-02-10] MEDS: MEROPENEM 500 MG in SODIUM CHLORIDE 0.9% 50 ML IV SCH ×2 (00:38→12:15)
[2021-02-10] MEDS: METOCLOPRAMIDE HCL 10MG/2ML VIAL IV SCH ×3 (00:38→12:15)
[2021-02-10] MEDS ORDERED: VANCOMYCIN 750 MG PREMIX 150 ML IV SCH (01:00)
[2021-02-10] MEDS: HYDROCORTISONE SOD SUCCINATE 100 MG/2 ML VIAL IV SCH ×2 (05:19→13:28)
[2021-02-10] MEDS: LEVOTHYROXINE SODIUM 125MCG TABLET PO SCH (05:20)
[2021-02-10 06:54] LABS: HEMATOCRIT. 31.6 % (42.0-52.0); HEMOGLOBIN. 10.2 g/dL (14.0-18.0); MEAN CORPUSCULAR HEMOGLOBIN 25.7 pg (28.0-32.0); MEAN CORPUSCULAR VOLUME 79.5 fL (80.0-94.0); MEAN PLATELET VOLUME 8.1 fl (7.4-10.4); PLATELET 167 x1000/uL (130-400); RED BLOOD CELL COUNT 3.97 mill/uL (4.7-6.1); RED CELL DISTRIBUTION WIDTH 18.2 % (11.6-14.6)
[2021-02-10 07:15] LABS: PHOSPHORUS 4.9 mg/dL (2.5-4.9)
[2021-02-10] MEDS: INSULIN LISPRO 100 UNITS/ML SUBCUT SCH ×2 (07:49→12:23)
[2021-02-10] MEDS: BLOOD SUGAR DIAGNOSTIC STRIP TEST SCH ×2 (07:49→12:07)
[2021-02-10] MEDS: MIDODRINE HCL 5MG TABLET PO SCH ×2 (08:43→12:08)
[2021-02-10] MEDS: POLYETHYLENE GLYCOL 3350 (17GM) 1 DOSE PACK PO SCH (08:55)
[2021-02-10] MEDS: CALCITRIOL 0.25MCG CAPSULE PO SCH (08:55)
[2021-02-10] MEDS: ASCORBIC ACID 500 MG TABLET PO SCH (08:55)
[2021-02-10] MEDS: LEVETIRACETAM 500MG/5ML CUP PO SCH (08:55)
[2021-02-10] MEDS: ZINC SULFATE 220 MG ( 50 ) CAPSULE PO SCH (08:55)
[2021-02-10] MEDS: ASPIRIN 325MG EC TABLET PO SCH (08:55)
[2021-02-10] MEDS: AMLODIPINE 5MG TABLET PO SCH (08:55)
[2021-02-10] MEDS: PANTOPRAZOLE SODIUM 40 MG/VIAL IV SCH (08:55)
[2021-02-10] MEDS: DOCUSATE SODIUM 100MG CAPSULE PO SCH (08:55)
[2021-02-10] MEDS: SODIUM CHLORIDE 0.45% 1,000 ML IV SCH (08:56)
[2021-02-10] MEDS: INSULIN GLARGINE UD 100 UNITS/ML SYR SUBCUT SCH (09:52)
[2021-02-10 13:26] LABS: PLATELET ESTIMATE NORMAL
[2021-02-10] MEDS: DOPAMINE 400MG/250ML PREMIX 250 ML IV PRN (13:27)
[2021-02-10] MEDS ORDERED: VANCOMYCIN 1 G PREMIX 200 ML IV NR (14:00)
== END 2021-02-10 16:09 | DRG 720 ==
LOC: ER 21:50 → ENRESERV 01-29 09:03 → 6WST 01-29 09:50 → CVICU 02-08 01:50
PROVIDERS: ADMIT Internal Medicine; ATTEND Internal Medicine
PROC: 02HV33Z Insertion of Infusion Device into Superior Vena Cava, Percutaneous Approach (ICD-10-PCS; principal; 2021-01-30)
PROC: B518ZZA Fluoroscopy of Superior Vena Cava, Guidance (ICD-10-PCS; 2021-01-30)
PROC: B548ZZA Ultrasonography of Superior Vena Cava, Guidance (ICD-10-PCS; 2021-01-30)
PROC: 5A1945Z Respiratory Ventilation, 24-96 Consecutive Hours (ICD-10-PCS; 2021-02-08)
PROC: 0BH17EZ Insertion of Endotracheal Airway into Trachea, Via Natural or Artificial Opening (ICD-10-PCS; 2021-02-08)
DX: A41.9 Sepsis, unspecified organism (principal); N17.0 Acute kidney failure with tubular necrosis; J96.01 Acute respiratory failure with hypoxia; J69.0 Pneumonitis due to inhalation of food and vomit; G92.9 Unspecified toxic encephalopathy; E23.0 Hypopituitarism; D68.69 Other thrombophilia; D64.9 Anemia, unspecified; D49.7 Neoplasm of unspecified behavior of endocrine glands and other parts of nervous system; I82.431 Acute embolism and thrombosis of right popliteal vein; G40.909 Epilepsy, unspecified, not intractable, without status epilepticus; E83.52 Hypercalcemia; E87.6 Hypokalemia; N39.0 Urinary tract infection, site not specified; R65.20 Severe sepsis without septic shock; E03.9 Hypothyroidism, unspecified; E66.9 Obesity, unspecified; K80.20 Calculus of gallbladder without cholecystitis without obstruction; E83.39 Other disorders of phosphorus metabolism; Z20.822 Contact with and (suspected) exposure to COVID-19; K76.0 Fatty (change of) liver, not elsewhere classified; R13.12 Dysphagia, oropharyngeal phase; R00.1 Bradycardia, unspecified; I48.20 Chronic atrial fibrillation, unspecified; S90.822A Blister (nonthermal), left foot, initial encounter; X58.XXXA Exposure to other specified factors, initial encounter; L60.2 Onychogryphosis; I87.8 Other specified disorders of veins; E11.51 Type 2 diabetes mellitus with diabetic peripheral angiopathy without gangrene; I12.9 Hypertensive chronic kidney disease with stage 1 through stage 4 chronic kidney disease, or unspecified chronic kidney disease; I42.9 Cardiomyopathy, unspecified; I48.92 Unspecified atrial flutter; E11.22 Type 2 diabetes mellitus with diabetic chronic kidney disease; N18.4 Chronic kidney disease, stage 4 (severe); Z79.82 Long term (current) use of aspirin; Z79.890 Hormone replacement therapy; Z79.899 Other long term (current) drug therapy; Z82.49 Family history of ischemic heart disease and other diseases of the circulatory system; Z68.31 Body mass index [BMI] 31.0-31.9, adult; Z78.1 Physical restraint status; Z86.73 Personal history of transient ischemic attack (TIA), and cerebral infarction without residual deficits; Z79.01 Long term (current) use of anticoagulants; Y93.89 Activity, other specified; Y92.89 Other specified places as the place of occurrence of the external cause; Y99.8 Other external cause status; Z92.241 Personal history of systemic steroid therapy
CPT/HCPCS: 31500; 36415; 36573; 36600; 70551; 71045; 74176; 76700; 78610; 80048; 80053; 80076; 80202; 80305; 81003; 82043; 82140; 82330; 82375; 82533; 82550; 82553; 82570; 82607; 82728; 82746; 82805; 82962; 83036; 83540; 83550; 83735; 83935; 84100; 84145; 84300; 84439; 84443; 84484; 85025; 87070; 87426; 92610; 93005; 93306; 93970; 94002; 94003; 97163; 97166; 99285; A9512; C1725; C1769; C9113; J1265; J1650; J1720; J1815; J1953; J1956; J2185; J2405; J2543; J2765; J3370; J3475; J3480; J3490; J7030; J7060; J7121; J8597; Q9967